=== PATIENT | female | born 1935 | race Caucasian/White ===

== ENCOUNTER 2021-09-06 10:06 | Emergency (ER) | payer MEDICARE, OTHER ==
[2021-09-06] MEDS ORDERED: Famotidine 20 MG Tab PO ONE (10:56)
[2021-09-06] MEDS ORDERED: Lisinopril 10 MG Tab PO ONE (10:57)
[2021-09-06 11:37] LABS: ESTIMATED GFR 50 mL/min (>60)
[2021-09-06] MEDS ORDERED: amLODIPine 5 MG Tab PO ONE (12:16)
== END 2021-09-06 13:16 | disposition home or self-care (01) ==
LOC: JP.ED 10:06
DX: N30.90 Cystitis, unspecified without hematuria (principal); I10 Essential (primary) hypertension; Z88.1 Allergy status to other antibiotic agents; Z88.5 Allergy status to narcotic agent; Z91.041 Radiographic dye allergy status; Z88.2 Allergy status to sulfonamides; Z88.8 Allergy status to other drugs, medicaments and biological substances; Z79.899 Other long term (current) drug therapy
CPT/HCPCS: 36415; 80053; 81001; 84484; 85027; 93005; 99284; A9270; 93010; 99282